=== PATIENT | male | born 1975 | race American Indian/Alaskan Native ===

== ENCOUNTER 2021-07-22 16:00 | Emergency (ER) | payer MEDICARE, MEDICAID ==
--- NOTE | 2021-07-22 16:20 | Emergency Department Report ---
ED General Adult HPI - General Chief complaint: Weakness Stated complaint: HYPOTENSION Time Seen by Provider: 07/22/21 16:09 Source: EMS Mode of arrival: Stretcher Limitations: No Limitations - History of Present Illness Initial comments: 45-year-old male, history of diabetes, ESRD, CVA with left-sided deficits, presents to ED from dialysis with hypotension. Patient was partially dialyzed. Patient registered a blood pressure of 80/60 dialysis. EMS was called. He was given 500 cc bolus of IV fluids. Last BP 124/78. Patient denies any chest pain , shortness of breath, abdominal pain, vomiting or diarrhea. Patient just reports feeling generally weak. -: This afternoon Severity scale (0 -10): 0 Consistency: now resolved Improves with: other (IV fluids) Worsens with: none Associated Symptoms: denies: chest pain, fever/chills, headaches, nausea/vomiting, shortness of breath Treatments Prior to Arrival: none - Related Data Allergies Allergy/AdvReac Type Severity Reaction Status Date / Time No Known Allergies Allergy Unverified 07/22/21 16:11 ED Review of Systems ROS: Stated complaint: HYPOTENSION Other details as noted in HPI Comment: All other systems reviewed and negative Constitutional: denies: fever Respiratory: denies: shortness of breath Cardiovascular: denies: chest pain Gastrointestinal: denies: abdominal pain, nausea, vomiting, diarrhea ED Past Medical Hx - Past Medical History Previous Medical History?: Yes Hx Hypertension: Yes Hx CVA: Yes Hx Diabetes: Yes Hx Renal Disease: Yes (HD MoWeFr) ED Physical Exam - General Limitations: No Limitations General appearance: alert, in no apparent distress - Head Head exam: Present: atraumatic, normocephalic - Eye Eye exam: Present: normal appearance, EOMI - ENT ENT exam: Present: mucous membranes moist - Neck Neck exam: Present: normal inspection - Respiratory Respiratory exam: Present: normal lung sounds bilaterally. Absent: respiratory distress - Cardiovascular Cardiovascular Exam: Present: regular rate, normal rhythm - GI/Abdominal GI/Abdominal exam: Present: soft. Absent: distended, tenderness - Extremities Exam Extremities exam: Present: other (Right BKA present; left partial foot amputation present) - Neurological Exam Neurological exam: Present: alert, oriented X3, motor sensory deficit (Baseline left-sided weakness due to prior CVA) - Psychiatric Psychiatric exam: Present: normal affect, normal mood - Skin Skin exam: Present: warm, dry, intact, normal color ED Course Vital Signs 07/22/21 07/22/21 07/22/21 16:07 16:08 16:11 Temperature 98.8 F Pulse Rate 85 Respiratory 17 Rate Blood Pressure Blood Pressure 124/78 [Left] O2 Sat by Pulse 99 98 99 Oximetry 07/22/21 07/22/21 07/22/21 16:16 16:30 16:46 Temperature Pulse Rate 86 89 84 Respiratory 10 L 9 L 11 L Rate Blood Pressure 140/71 142/73 130/77 Blood Pressure [Left] O2 Sat by Pulse 97 98 98 Oximetry 07/22/21 07/22/21 07/22/21 17:00 17:16 17:30 Temperature Pulse Rate 82 84 82 Respiratory 14 21 11 L Rate Blood Pressure 128/71 136/75 134/75 Blood Pressure [Left] O2 Sat by Pulse 100 96 97 Oximetry ED Medical Decision Making - Lab Data Result diagrams: 07/22/21 16:34 07/22/21 16:34 - Medical Decision Making Normal blood pressure throughout ED stay. Labs are unremarkable except for mild renal failure. Patient will be discharged at this time. Outpatient follow-up advised, return precautions given. - Differential Diagnosis Hypovolemia Critical care attestation.: If time is entered above; I have spent that time in minutes in the direct care of this critically ill patient, excluding procedure time. ED Disposition Clinical Impression: Hypotension of hemodialysis Disposition: 01 HOME / SELF CARE / HOMELESS Is pt being admited?: No Condition: Stable Instructions: Hypotension, [id number] Referrals: PRIMARY CARE, [Primary Care Provider] - 3-5 Days Time of Disposition: 18:14
[2021-07-22 16:50] LABS: Basophils % (Auto) 0.8 % (0.0-1.8); Eosinophils # (Auto) 0.2 K/mm3 (0.0-0.4); Hematocrit 32.2 % (35.5-45.6); Hemoglobin 10.3 gm/dl (11.8-15.2); Lymphocytes % (Auto) 26.8 % (13.4-35.0); Mean Corpuscular HGB Conc 32 % (32-34); Mean Corpuscular Volume 98 fl (84-94); Monocytes # (Auto) 0.3 K/mm3 (0.0-0.8); Monocytes % (Auto) 7.8 % (0.0-7.3); Platelet Count 136 K/mm3 (140-440); Red Blood Count 3.27 M/mm3 (3.65-5.03); Red Cell Distribution Width 15.6 % (13.2-15.2)
[2021-07-22 17:04] LABS: Calcium 8.7 mg/dL (8.4-10.2)
[2021-07-23 01:33] VITALS: BP 127/72
== END 2021-07-23 01:45 | disposition home or self-care (01) ==
LOC: ED 16:00
DX: I95.9 Hypotension, unspecified (principal); E11.9 Type 2 diabetes mellitus without complications; Z99.2 Dependence on renal dialysis
CPT/HCPCS: 36415; 80048; 82962; 85025; 93005; 99284